=== PATIENT | female | born 2000 | race Caucasian/White ===

== ENCOUNTER 2018-01-01 12:36 | Emergency (ER) | payer OTHER ==
[~2018-01-01] VITALS: Ht 167.6 cm; Wt 49.9 kg
[2018-01-01] MEDS ORDERED: [UNRECOGNIZED DRUG - OTHER] PO (13:04)
[2018-01-01] MEDS ORDERED: ANTI-ITCH28 GM TOP (14:10)
[2018-01-01] MEDS ORDERED: ZYRTEC10 M3 PO (14:10)
== END 2018-01-01 15:30 | disposition home or self-care (01) ==
LOC: ER 12:36
DX: L29.8 Other pruritus (principal); S71.152S Open bite, left thigh, sequela; S71.151S Open bite, right thigh, sequela; W57.XXXS Bitten or stung by nonvenomous insect and other nonvenomous arthropods, sequela